=== PATIENT | female | born 1955 | race Caucasian/White ===

== ENCOUNTER 2023-04-28 11:38 | Outpatient (REF) | payer MEDICARE, SELFPAY | END 2023-04-28 11:39 | disposition home or self-care (01) | LOC: HO.HOSX 11:38 | PROVIDERS: Visit Provider Orthopaedic Surgery | DX: M25.561 Pain in right knee (principal); M25.562 Pain in left knee; Z79.899 Other long term (current) drug therapy | CPT/HCPCS: 99202 ==

== ENCOUNTER 2023-04-28 13:47 | Outpatient (AMB) | payer OTHER, SELFPAY ==
--- NOTE | 2023-04-28 14:04 | A.OFFVIS_ITS ---
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 She describes her pains as achy in nature. She has been going to physical therapy at [facility] in [place]. She has gotten fairly good relief from the therapy. She has taken Tylenol which gives her mild relief. She is not able to take anti-inflammatory medicines because she is on Coumadin. Allergies No Known Allergies Allergy (Verified 04/28/23 14:06) Medication List - Last Reconciled 04/29/23 by Giacomo Mcclure MD digoxin 125 mcg PO DAILY furosemide 20 mg PO DAILY levothyroxine 88 mcg PO DAILY metoprolol succinate ER 75 mg PO DAILY rosuvastatin 10 mg PO DAILY warfarin 5 mg PO DAILY Physical Exam Vital Signs: BMI result Body Mass Index 27.1 Const Other: Well-nourished well-developed very friendly female awake alert and oriented x3 in no acute distress Extrem Other: Bilateral lower extremity examination shows good capillary refill, no skin lesions noted, normal sensation light touch Bilateral knee examination shows minimal effusions, palpable crepitus with range of motion, pain with range of motion, no instability Assessment & Plan Assessment & Plan (1) Bilateral knee pain: Code(s): M25.561 - Pain in right knee; M25.562 - Pain in left knee Plan Ms. Power presents with bilateral knee pains due to degenerative joint disease. I had a lengthy discussion with the patient regarding the treatment options. At this point she continues to get relief from her physical therapy exercises. We will hold off on an injection. She will follow up with me on an as-needed basis should her symptoms not plateau at an unacceptable level. Feel free to call me at any time should questions regarding her orthopedic management arise. Thank you very much for asking me to see this very friendly patient. I spent 22 minutes in reviewing the patient's records and imaging studies, seeing the patient and documenting in the medical record. Orders: Orders XR knee LT 3V 04/28/23 M25.562 - Pain in left knee Coding Level of Care Code New Pt Level 2 (99854) Diagnoses Bilateral knee pain M25.561; M25.562
[2023-04-28 14:05] VITALS: BMI 27.1
== END 2023-04-28 14:36 | disposition home or self-care (01) ==
PROVIDERS: PCP Internal Medicine; Visit Provider Orthopaedic Surgery
DX: M25.561 Pain in right knee (principal); M25.562 Pain in left knee
CPT/HCPCS: 99202